=== PATIENT | male | born 1970 | race African-American/Black ===

== ENCOUNTER 2018-12-16 22:04 | Emergency (ER) | payer BC, OTHER ==
[~2018-12-16] VITALS: Ht 190.5 cm; Wt 205.7 kg
[2018-12-16 22:05] VITALS: BP 144/82
[2018-12-16] MEDS ORDERED: BENZONATATE 100 MG CAPSULE PO ONE (23:30)
[2018-12-16] MEDS ORDERED: IBUPROFEN 800 MG TABLET PO ONE (23:30)
[2018-12-16] MEDS ORDERED: IBUPROFEN 200 MG TABLET ONE (23:38)
[2018-12-16] MEDS ORDERED: BENZONATATE 100 MG CAPSULE ONE (23:39)
--- NOTE | 2018-12-16 23:56 | NUR ---
Patient/Caregiver given discharge instructions and they have confirmed that they understand the instructions. Patient ambulatory with crutches. SPO2 94% on room air, PA made aware and okay with this, states to return if any increased SOB.
== END 2018-12-16 23:59 | disposition home or self-care (01) ==
LOC: ED 22:58
DX: S97.81XA Crushing injury of right foot, initial encounter (principal); I10 Essential (primary) hypertension; F17.200 Nicotine dependence, unspecified, uncomplicated; X58.XXXA Exposure to other specified factors, initial encounter; Y93.89 Activity, other specified; Y92.89 Other specified places as the place of occurrence of the external cause; Y99.8 Other external cause status
CPT/HCPCS: 99283